=== PATIENT | female | born 1970 | race Two or more races ===

== ENCOUNTER 2021-07-19 10:00 | Outpatient (RCR) | payer MEDICAID, OTHER, SELFPAY | END 2021-07-21 11:16 | disposition home or self-care (01) | LOC: HO.OT 10:00 | PROVIDERS: PCP Internal Medicine; Visit Provider Nurse Practitioner Family | DX: S52.501D Unspecified fracture of the lower end of right radius, subsequent encounter for closed fracture with routine healing (principal) | CPT/HCPCS: 97035; 97110; 97140; 97166; 97530; 97760 ==

== ENCOUNTER 2022-05-06 10:56 | Outpatient (REF) | payer MEDICAID, OTHER, SELFPAY ==
--- NOTE | ~2022-05-06 | MM_ITS ---
EXAMINATION: MM SCREENING DIGITAL BREAST TOMOSYNTHESIS, BILATERAL CLINICAL INFORMATION: Screening. Asymptomatic. The lifetime risk of breast cancer based on the Tyrer-Cuzick Model is 7%. COMPARISON: Mammography: 04/18/2019, 04/05/2018 TECHNIQUE: Digital breast tomosynthesis is performed in both the craniocaudal and mediolateral oblique views along with computer-aided detection (CAD). Synthesized 2D images are generated from the tomosynthesis. FINDINGS: The breasts are heterogeneously dense, which may obscure small masses (ACR BI-RADS breast composition Category c). There are no significant masses, abnormal calcifications, or other abnormalities. Parenchymal pattern is similar to prior studies. There is no developing density or architectural abnormality. The axilla and skin contours are unremarkable. No significant changes. MM/MM tomosynthesis screening BI IMPRESSION: No mammographic evidence of malignancy. ASSESSMENT: BI-RADS 1: Negative RECOMMENDATION: Routine annual mammography screening. This patient's information was entered into a reminder system with a target due date for their next mammogram.
== END 2022-05-06 10:57 | disposition home or self-care (01) ==
LOC: HO.MAMMO 10:56
PROVIDERS: PCP General Practice; Visit Provider General Practice
DX: Z12.31 Encounter for screening mammogram for malignant neoplasm of breast (principal)
CPT/HCPCS: 77063; 77067

== ENCOUNTER 2023-02-27 14:40 | Outpatient (REF) | payer MEDICAID, OTHER, SELFPAY ==
[2023-02-27 17:01] LABS: Thyroid Stimulating Hormone 0.66 uIU/mL (0.32-4.0)
== END 2023-02-27 14:41 | disposition home or self-care (01) ==
LOC: HO.HHCL 14:40
PROVIDERS: Visit Provider General Practice
DX: E03.9 Hypothyroidism, unspecified (principal)
CPT/HCPCS: 36415; 84443

== ENCOUNTER 2023-06-13 08:58 | Outpatient (REF) | payer OTHER, SELFPAY | END 2023-06-13 08:59 | disposition home or self-care (01) | LOC: HO.MAMMO 08:58 | PROVIDERS: PCP General Practice; Visit Provider General Practice | DX: Z12.31 Encounter for screening mammogram for malignant neoplasm of breast (principal) | CPT/HCPCS: 77063; 77067 ==

== ENCOUNTER → 2023-06-13 09:15 | Outpatient (BNV) | payer SELFPAY | PROVIDERS: PCP General Practice; Visit Provider Radiology Diagnostic Radiology | DX: Z12.31 Encounter for screening mammogram for malignant neoplasm of breast (principal) | CPT/HCPCS: 77063; 77067 ==

== ENCOUNTER 2023-09-21 22:27 | Emergency (ER) | payer SELFPAY ==
[2023-09-21 22:41] VITALS: BP 141/86; PULSE 65; RESP 18; TEMP 36.4; O2SAT 100; BMI 21.5
[2023-09-21 22:52] LABS: MANUAL DIFF FLAG NO
[2023-09-21 22:53] LABS: Basophils Percent Auto 0.3 % (0-2); Eosinophils Absolute Auto 0.1 X10*3/uL (0.0-0.4); Eosinophils Percent Auto 1.2 % (0-4); Hematocrit 29.9 % (37.0-47.0); Imm Gran Abs Auto 0.01 X10*3/uL (0.00-0.03); Imm Gran Pct Auto 0.1 % (0.0-0.4); Lymphocytes Absolute Auto 2.2 X10*3/uL (1.2-4.9); Lymphocytes Percent Auto 29.6 % (20-40); Mean Corpuscular HGB Conc 33.4 g/dl (31.0-35.0); Mean Corpuscular Hemoglobin 27.5 pg (27.0-33.0); Mean Corpuscular Volume 82.4 fL (80.0-98.0); Monocytes Absolute Auto 0.6 X10*3/uL (0.1-1.2); Monocytes Percent Auto 7.8 % (2-11); Neutrophils Absolute Auto 4.5 x10*3/uL (2.0-8.3); Platelet Count 386 X10*3/uL (160-400); Red Blood Count 3.63 X10*6/uL (4.20-5.50); White Blood Count 7.4 X10*3/uL (4.8-10.8)
[2023-09-21 23:08] LABS: Alanine Aminotransferase 13 U/L (0-31); Albumin Level 4.2 g/dL (3.5-5.0); Alkaline Phosphatase 105 U/L (39-117); Anion Gap 13 (12-20); Aspartate Amino Transferase 21 U/L (5-31); Bilirubin Total 0.1 mg/dL (0.0-1.0); Blood Urea Nitrogen 15 mg/dL (9-16); Calcium 9.4 mg/dL (8.4-10.2); Carbon Dioxide 28 mmol/L (22-29); Chloride 105 mmol/L (96-108); Creatinine Clr Calc Pharmacy 77.6; Estimated Glomerular Filt Rate > 60; Glucose Random 112 mg/dL (60-115); Sodium 142 mmol/L (135-145); Total Protein 7.8 g/dL (6.5-8.0)
--- NOTE | 2023-09-22 01:30 | ED.GENADULT ---
HPI - General Adult General Chief complaint: Dental/Oral Stated complaint: right cheek swelling ? tooth Time Seen by Provider: 09/22/23 01:09 Source: patient, RN notes reviewed and old records reviewed Mode of arrival: ambulatory Limitations: no limitations History of Present Illness HPI narrative: 52-year-old female presents for evaluation of right-sided facial pain and swelling. 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 She does state that similar illnesses she was chronic due to the previous cancer, surgery and radiation Denies any recent trauma to the head or neck There is no swelling to the neck Related Data Previous Rx's Medication Instructions Recorded amoxicillin 875 mg-potassium 1 tab PO BID #19 tabs 09/22/23 clavulanate 125 mg tablet Allergies Allergy/AdvReac Type Severity Reaction Status Date / Time No Known Allergies Allergy Verified 09/21/23 22:40 [No Known Allergies*] Review of Systems Constitutional: Constitutional: Denies body ache(s), Denies chills and Denies fever(s) ENT: Reports dental pain, Reports facial pain, Reports mouth pain, Denies neck mass and Denies neck pain Musculoskeletal: Musculoskeletal: Denies neck pain Physical Exam ED Vital Signs: Vital Signs - 24 hr 09/21/23 22:41 Temperature 97.6 F Pulse Rate 65 Respiratory Rate 18 Blood Pressure 141/86 H Pulse Oximetry 100 Oxygen Delivery Method Room Air BMI result Body Mass Index 21.5 Const General: healthy appearing, comfortable, no acute distress, alert and awake Nutritional Appearance: well nourished Orientation/consciousness: patient oriented x3 HENMT Other: Patient has right lower facial edema with some erythema to the right lower mandible. No step-offs or deformities. With the help of the tongue depressor I was able to evaluate the gingiva with minimal erythema in significant edema. No obvious abscess. No area of fluctuance. Patient has significant dental caries throughout the mouth. No Adilson's angina Eyes Eyelids: Yes eyelids normal Conjunctivae: conjunctivae normal Sclerae: sclerae normal Corneas: corneas normal Pupils: Equal, round and reactive pupils present EOM: EOMs intact bilaterally Neck Neck: Yes full ROM, Yes trachea midline, Yes supple and Yes anterior neck swelling Resp Effort & Inspection: normal respiratory effort, able to speak in complete sentences and not labored Skin General skin exam: elasticity normal Neuro General: patient oriented x3 Cranial nerves: Yes Equal, round and reactive pupils present and Yes Bilaterally intact EOM present Cognition (Neuro): normal cognition Extrem Other: Moving all extremities well without any obvious deformities Medical Decision Making Medical Decision Making [facility] Narrative: Patient has multiple dental caries and evident dental infection with no evidence of abscess, Adilson's angina or neck swelling. Will treat the patient with Augmentin and she was encouraged to follow up with a dentist. Differential Diagnosis Differential Diagnoses: The differential diagnosis associated with the presentation includes Abscess Cellulitis Dental abscess Dental caries Facial pain Lab Data [facility] Lab Attestation statement: I reviewed the patient's lab results. No leukocytosis. Patient has a mild anemia with a hemoglobin of 10.0 hematocrit 29.9. No significant chemistry abnormalities 09/21/23 22:48 09/21/23 22:48 Labs: Lab Results 09/21/23 Range/Units 22:48 WBC 7.4 (4.8-10.8) X10*3/uL RBC 3.63 L (4.20-5.50) X10*6/uL Hgb 10.0 L (12.0-16.0) g/dl Hct 29.9 L (37.0-47.0) % MCV 82.4 (80.0-98.0) fL MCH 27.5 (27.0-33.0) pg MCHC 33.4 (31.0-35.0) g/dl RDW 16.0 (11.0-16.0) % Plt Count 386 (160-400) X10*3/uL MPV 9.0 L (9.4-12.3) fL Immature Gran % (Auto) 0.1 (0.0-0.4) % Neut % (Auto) 61.0 (45-73) % Lymph % (Auto) 29.6 (20-40) % [place] % (Auto) 7.8 (2-11) % Eos % (Auto) 1.2 (0-4) % Baso % (Auto) 0.3 (0-2) % Lymph # (Auto) 2.2 (1.2-4.9) X10*3/uL [place] # (Auto) 0.6 (0.1-1.2) X10*3/uL Eos # (Auto) 0.1 (0.0-0.4) X10*3/uL Baso # (Auto) 0.0 (0.0-0.2) X10*3/uL Abs Immat Gran (auto) 0.01 (0.00-0.03) X10*3/uL Absolute Neuts (auto) 4.5 (2.0-8.3) x10*3/uL Absolute Nucleated RBC 0.000 (0.0-0.012) X10*3/uL Nucleated RBC % (auto) 0.0 (0.0-0.2) /100WBC Sodium 142 (135-145) mmol/L Potassium 4.0 (3.3-5.1) mmol/L Chloride 105 (96-108) mmol/L Carbon Dioxide 28 (22-29) mmol/L Anion Gap 13 (12-20) BUN 15 (9-16) mg/dL Creatinine 0.74 (0.5-1.4) mg/dL Estim Creat Clear Calc 77.6 Estimated GFR > 60 Random Glucose 112 (60-115) mg/dL Calcium 9.4 (8.4-10.2) mg/dL Total Bilirubin 0.1 (0.0-1.0) mg/dL AST 21 (5-31) U/L ALT 13 (0-31) U/L Alkaline Phosphatase 105 (39-117) U/L Total Protein 7.8 (6.5-8.0) g/dL Albumin 4.2 (3.5-5.0) g/dL Discharge Plan Discharge Clinical Impression: Dental caries, Facial swelling Patient Disposition: Home, Self-Care Instructions: Gingivostomatitis (ED) Additional Instructions: Take Augmentin twice daily for the next 10 days Use Motrin/Tylenol for pain and swelling Apply warm compresses to the area every 4 hours It is very important that you follow-up with a dentist You will likely continue to have infections if you do not get proper oral hygiene Return for new or worsening symptoms Prescriptions: New amoxicillin-pot clavulanate 875-125 mg tablet 1 tab PO BID Qty: 19 0RF
[2023-09-22] MEDS: Amoxicillin/Potassium Clav 875 MG TABLET PO (01:41)
== END 2023-09-22 01:51 | disposition home or self-care (01) ==
PROVIDERS: Emergency Provider Internal Medicine; PCP General Practice
DX: K05.10 Chronic gingivitis, plaque induced (principal); R51.9 Headache, unspecified
CPT/HCPCS: 36415; 80053; 85025; 99283; 99284

== ENCOUNTER 2023-10-02 11:16 | Outpatient (REF) | payer SELFPAY ==
[2023-10-02 14:11] LABS: TSH reflex Free T4 6.44 uIU/mL (0.32-4.0)
[2023-10-02 14:52] LABS: Free T4 (Free Thyroxine) 1.14 ng/dL (0.71-1.85)
== END 2023-10-02 11:17 | disposition home or self-care (01) ==
LOC: HO.HHCL 11:16
PROVIDERS: Visit Provider General Practice
DX: E03.9 Hypothyroidism, unspecified (principal)
CPT/HCPCS: 36415; 84439; 84443

== ENCOUNTER 2024-01-29 10:13 | Outpatient (REF) | payer OTHER, SELFPAY ==
[2024-01-29 12:36] LABS: TSH reflex Free T4 20.82 uIU/mL (0.32-4.0)
[2024-01-29 12:43] LABS: HIV AB/AG Nonreactive (Nonreactive); HIV Num 1 0.06 S/CO (0.00-0.99); ~HepC Num1 0.16 S/CO (0.00-0.79); ~Hepatitis C Antibody Nonreactive (Nonreactive)
[2024-01-29 13:45] LABS: Free T4 (Free Thyroxine) 0.89 ng/dL (0.71-1.85)
[2024-01-31 06:39] LABS: RPR Rapid Plasma Reagin NON-REACTIVE (NON-REACTIVE)
== END 2024-01-29 10:14 | disposition home or self-care (01) ==
LOC: HO.HHCL 10:13
PROVIDERS: Visit Provider General Practice
DX: E03.9 Hypothyroidism, unspecified (principal); Z11.3 Encounter for screening for infections with a predominantly sexual mode of transmission
CPT/HCPCS: 36415; 84439; 84443; 86592; 86803; 87389

== ENCOUNTER 2024-12-31 11:16 | Outpatient (REF) | payer SELFPAY ==
--- OUTSIDE RECORDS SUMMARY | 2024-12-31 12:58 | XMS_ITS | Encounter Summary ---
Author Organization [facility] Address [address] [place] [address] Care Team Providers Care Purchasing Officer Name Role Phone Wilda Smyth Primary Care Provider [phone] Encounter Details Date Type Department Care Team (Late Contact Info) Description 04/20/2021 Orders Only [facility] Interventional Radiology [address] [place] [phone] Darrian Yung MD [address] [place] [phone] Social History Tobacco Use Types Packs/Day Years Used Date Smoking Tobacco: Never Smokeless Tobacco: Never Alcohol Use Standard Drinks/Week Comments No 0 (1 standard drink = 0.6 oz pur e alcohol) Comments No Sex and Gender Information Value Date Recorded Sex Assigned at Not on file Legal Sex Female 10:52 AM EDT Gender Identity Not on file Sexual Orientation Not on file Occupation Industry Job Start Date Job End Date unemployed Not on file Not on file Not on file documented as of this encounter Plan of Treatment Upcoming Encounters Date Type Department Care Team (Late Contact Info) Description 03/28/2025 10:00 AM EDT Appointment [facility] Otol[facility]ology [facility] [address] [place] [address] Solutions Analyst: Lokesh Rogers Jr., MD [address] [place] [address] [phone] documented as of this encounter Visit Diagnoses Not on filedocumented in this encounter Care Teams Purchasing Officer Relationship Specialty Start Date End Date Wilda Smyth [address] [place] [address] PCP - General 03/05/21 documented as of this encounter
[2024-12-31 14:20] LABS: TSH reflex Free T4 11.84 uIU/mL (0.32-4.0)
[2024-12-31 18:20] LABS: Free T4 (Free Thyroxine) 0.96 ng/dL (0.71-1.85)
== END 2024-12-31 11:17 | disposition home or self-care (01) ==
LOC: HO.HHCL 11:16
PROVIDERS: Visit Provider General Practice
DX: E03.9 Hypothyroidism, unspecified (principal)
CPT/HCPCS: 36415; 84439; 84443

== ENCOUNTER 2025-05-12 12:00 | Outpatient (REF) | payer OTHER, SELFPAY ==
--- OUTSIDE RECORDS SUMMARY | 2025-05-07 15:45 | XMS_ITS | Encounter Summary ---
Author Organization [facility] [employer] [facility] [employer] Address [address] [place] [address] [address] [place] [address] Care Team Providers Care Financial Brokers Name Role Phone Wilda Smyth MD Primary Care Provider [phone] Reason for Referral * Consultation (Routine) - Authorized Specialty Diagnoses / Procedures Referred By Aaliyah rivera Referred To Contact Plastic Surgery Diagnoses Maxillary sinus cancer (CMS/HCC) (HCC) Wilda Smyth MD [address] [place] [address] Phone: tel: fax: Plastics, [facility] [address] [place], [place] Phone: tel: fax: Referral ID Status Reason Start Date Expiration Date Visits Requested Visits Authorized [id number] Authorized Specialty Services Required 05/07/2025 05/07/2026 1 1 Reason for Visit * Reason Comments Follow-up Encounter Details Date Type Department Care Team (Latest Contact Info) Description 05/07/2025 3:45 PM EDT Office Visit [facility] [address] [place], [place] [phone] Wilda Smyth MD [address] [place], [place] [phone] Postoperative hypothyroidism (Primary Dx); Maxillary sinus cancer (CMS/HCC) (HCC) Social History Tobacco Use Types Packs/Day Years Used Date Smoking Tobacco: Never Passive Smoke Exposure: Never Smokeless Tobacco: Never Alcohol Use Standard Drinks/Week Comments Never 0 (1 standard drink = 0.6 oz pur e alcohol) Alcohol Answer Date Recorded How often do you have a drink containing alcohol ? 0 05/07/2025 How many drinks containing a lcohol do you have on a typical day when you are drinking? 0 05/07/2025 How often do you have six or more drinks on one occasion? 0 05/07/2025 Depression Answer Date Recorded Patient Health Questionnaire-9 Score 3 05/07/2025 Patient Health Questionnaire-9 Score 3 05/07/2025 Last PHQ-9: Questionnaire Data Not on file 1 Housing Stability Answer Date Recorded What is your housing situation today? I have juancho rivera 01/18/[address] you li ve. Do you have problems with any of the following? None of the above 01/18/2024 Food Insecurity Answer Date Recorded Within the past 12 months, y ou worried that your food would run out before you got money to buy more: Never True 01/18/2024 Within the past 12 months,th e food you bought just didn't last and you didn't have enough money to get more: Never True Transportation Answer Date Recorded In the past 12 months, has l ack of transportation kept you from medical appts, meetings, work or from getting things needed for daily living? No 01/18/2024 Utilities Answer Date Recorded In the past 12 months, has t he electric, gas, oil or water company threatened to shut off services in your home? No 01/18/2024 Depression Answer Date Recorded Patient Health Questionnaire-2 Score 0 05/07/2025 Internet Access Answer Date Recorded Internet Access Q1 No 12/19/2024 Internet Access Q2 I do not want or need it 11/29 Comments Unknown Sex and Gender Information Value Date Recorded Sex Assigned at Female 05/30/2022 10:34 AM EDT Legal Sex Female 10:34 AM EDT Gender Identity Female 05/30/2022 10:34 AM EDT Sexual Orientation Straight 05/30/2022 10 :34 AM EDT documented as of this encounter Last Filed Vital Signs Vital Sign Reading Time Taken Comments Blood Pressure 138/84 05/07/2025 4:21 PM EDT Pulse - - Temperature - - Respiratory Rate - - Oxygen Saturation - - Inhaled Oxygen Concentration - - Weight 56.6 kg (124 lb 12.8 oz) 05/07/2025 3:45 PM EDT Height 160 cm (5' 3 ) 05/07/2025 3:45 PM EDT Body Mass Index 22.11 05/07/2025 3:45 PM EDT documented in this encounter Functional Status * Over the past 2 weeks, how often have you been bothered by any of the following problems? Question Answer Date of Assessment Author Patient Health Questionnaire -2 Score 0 05/07/2025 4:21 PM EDT Mile Campos [place] * Little interest or pleasure in doing things Answer Date of Assessment Author Not at all 05/07/2025 4:21 PM EDT Mile Campos [place] * Feeling down, depressed, or hopeless Answer Date of Assessment Author Not at all 05/07/2025 4:21 PM VIVIANET Mile Campos [place] * Trouble falling or staying asleep, or sleeping too much Answer Date of Assessment Author Several days 05/07/2025 4:21 PM EDT Mile Campos [place] * Feeling tired or having little energy Answer Date of Assessment Author Several days 05/07/2025 4:21 PM EDT Mile Campos [place] * Poor appetite or overeating Answer Date of Assessment Author Several days 05/07/2025 4:21 PM EDT Mile Campos [place] * Feeling bad about yourself - or that you are a failure or have let yourself or your family down Answer Date of Assessment Author Not at all 05/07/2025 4:21 PM EDT Mile Campos [place] * Trouble concentrating on things, such as reading the newspaper or watching television Answer Date of Assessment Author Not at all 05/07/2025 4:21 PM EDT Mile Campos [place] * Moving or speaking so slowly that other people could have noticed? Or the opposite - being so fidgety or restless that you have been moving around a lot more than usual. Answer Date of Assessment Author Not at all 05/07/2025 4:21 PM VIVIANET Mile Campos [place] * Thoughts that you would be better off or hurting yourself in some way Answer Date of Assessment Author Not at all 05/07/2025 4:21 PM EDT Mile Campos [place] * Patient Health Questionnaire-9 Score Answer Date of Assessment Author 3 05/07/2025 4:21 PM EDT Mile Campos [place] * How difficult have these problems made it for you to do your work, take care of things at home, or get along with other people? Answer Date of Assessment Author Somewhat difficult 05/07/2025 4:21 PM EDT Mile García [place] * Over the last 2 weeks, how often have you been bothered by any of the following problems? Question Answer Date of Assessment Author Feeling nervous, anxious, or on edge 0 05/07/2025 4:21 PM EDT Mile Campos MA Not being able to stop or co ntrol worrying 0 05/07/2025 4:21 PM EDT Mile Campos MA Worrying too much about diff erent things 0 05/07/2025 4:21 PM EDT Mile Campos [place] Trouble relaxing 0 05/07/2025 4:21 PM EDT Mile Valles [place] Being so restless that it is hard to sit still 0 05/07/2025 4:21 PM EDT Mile Campos MA Becoming easily annoyed or irritable 1 05/07/2025 4:21 PM EDT Mile Campos MA Feeling afraid as if somethi ng awful might happen 0 05/07/2025 4:21 PM EDT Mile Campos MA TOBIN-7 Total Score 1 05/07/2025 4:21 PM EDT Mile Campos MA documented as of this encounter Progress Notes * Wilda Smyth MD - 05/07/2025 3:45 PM EDT Images from the original note were not included. SUBJECTIVE: Kimberly Castorena is a 54 y.o. female who presents for chronic disease management. Denies recent illness, ER visit, or hospitalization. Acute Concerns: Referral to [facility] for plastic surgery Chronic Conditions and Plans: Aiden and post-surgical hypothyroidism: Taking 150mcg Levothyroxine Lab Results Component Value Date TSH 11.84 (H) 12/31/2024 TSH 20.82 (H) 01/29/2024 TSH 6.44 (H) 10/02/2023 TSH 0.66 02/27/2023 TSH 41.66 (H) 10/17/2022 Was on Synthroid 50mcg daily from 04/2018 to 01/2019, then stopped due to confusion about whether this was a chronic issue. When I saw her in 07/2020, she was complaining of dry skin, tingling in hands, weight loss (weight hard to separate out because of her oral/maxillary surgery). Labs rechecked 07/2020 with TSH 120 and T4 0.2. I started her on Synthroid 100mcg (2mcg/kg) and TSH was 5.4 (11/2020). She saw Kezia Fortune NP at [facility] on 03/03/21 and her TSH was 37, with free T4 in normal range, TPO continues to be very elevated. She reports [facility] told her that I can manage her and she does not need to see them. She prefers this too as transportation to [facility] is difficult. Poor dentition/need for dentures Saw ZONING ENGINEER few times in [facility], switching to [facility] first appointment 03/13/24 to help with opening and mobilizing her mouth. Is now doing the denture/prosthesis and exercises herself [facility] oral maxillofacial surgeon is determining when they can operate on her teeth/set of dentures. Having repeated bouts of R lower jaw inflammation. 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 for fibroma, not sure if it was cervix- sparing or not Does not recall previous pap history, no abnormals that she remembers Not sexually active currently Maxillary Tumor/Facial reconstruction: Had repeat maxillary reconstruction from radial bone and skin graft, anterior neck approach- 04/26/2021 at [facility] Following for dental reconstruction with Lokesh Monroy, [address] [phone] speaking a little better, gained 20 pounds (was 100 pounds day of surgery) eating is the same, swallowing is difficult marcin small or dry foods. She has had two failed bone grafts of the maxilla (one from her arm and one from her thigh). She has a residual hole in L upper cheek that makes it difficult to eat or talk. Went through PT/OT at [facility] and in [place]. 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 HENT: Positive for dental problem and voice change. Negative for congestion, drooling, ear discharge, ear pain, facial swelling, hearing loss, mouth sores, nosebleeds, postnasal drip, rhinorrhea, sinus pressure, sinus pain, sneezing, sore throat, tinnitus and trouble swallowing. Respiratory: Negative. Cardiovascular: Negative. Gastrointestinal: Negative. OBJECTIVE: Vitals: 05/07/25 1545 05/07/25 1621 BP: (!) 140/90 138/84 BP Location: Left arm Patient Position: Sitting BP Cuff Size: Large adult Weight: 124 lb 12.8 oz (56.6 kg) Height: 5' 3 (1.6 m) Physical Exam Vitals and nursing note reviewed. Constitutional: Appearance: Normal appearance. HENT: Head: Normocephalic. Jaw: Malocclusion present. No swelling or pain on movement. Comments: Missing portion of her L maxilla with associated shrunken deformity of her L cheek Right Ear: Tympanic membrane, ear canal and external ear normal. Left Ear: Tympanic membrane, ear canal and external ear normal. Nose: Nose normal. Mouth/Throat: Mouth: Mucous membranes are moist. Injury present. Dentition: Abnormal dentition. Dental tenderness and dental caries present. Cardiovascular: Rate and Rhythm: Normal rate and regular rhythm. Pulses: Normal pulses. Heart sounds: Normal heart sounds. Pulmonary: Effort: Pulmonary effort is normal. Breath sounds: Normal breath sounds. Skin: General: Skin is warm and dry. Neurological: General: No focal deficit present. Mental Status: She is alert and oriented to person, place, and time. Psychiatric: Mood and Affect: Mood normal. Behavior: Behavior normal. ASSESSMENT/PLAN Problem List Items Addressed This Visit Hypothyroidism - Primary Relevant Orders TSH W/Reflex to FT4 Maxillary sinus cancer (CMS/HCC) ([facility]) Current Assessment & Plan S/p wide excision 2019 Began the process of facial reconstruction and dental reconstruction after that surgery in 2019. Team involved: - Dr Monroy ENT surgeon at [facility] Speech therapy - oral maxillofacial surgeon recommend plastic surgery consult 02/2025 Relevant Orders Referral to Plastic Surgery Follow Up: 4 months or sooner prn Allergies[2] Current Medications[3] Iraqi Translation: Provided by [facility] staff member BEV Treadwell [1] Past Surgical History: Procedure Laterality Date HYSTERECTOMY SINUS SURGERY Left 03/2021 Left maxilla reconstruction from hand bone [2] Allergies Allergen Reactions Lemon Oil Angioedema Tongue thickens Pineapple Angioedema [3] Current Outpatient Medications: melatonin 3 MG tablet, Take 3 mg by mouth at bedtime., Disp: , Rfl: Docusate Sodium (DSS) 100 MG capsule, Take 100 mg by mouth., Disp: , Rfl: ibuprofen 600 MG tablet, TAKE 1 TABLET BY MOUTH THREE TIMES DAILY WITH FOOD, Disp: , Rfl: levothyroxine (Synthroid) 150 MCG tablet, Take 1 tablet (150 mcg) by mouth before breakfast., Disp:90 tablet, Rfl: 3 Melatonin 3 MG capsule, Take 3 mg by mouth at bedtime., Disp: 90 capsule, Rfl: 0 Multiple Vitamin (Multi-Vitamin) tablet, take 1 tablet by oral route every day with food, Disp: 90 tablet, Rfl: 3 pentoxifylline (Trental) 400 MG ER tablet, Take 400 mg by mouth with breakfast and with evening meal., Disp: , Rfl: polyvinyl alcohol (Liquifilm Tears) 1.4 % ophthalmic solution, Administer 1 drop into affected eye(s)., Disp: , Rfl: sennosides (Senokot) 8.6 MG tablet, Take 8.6 mg by mouth., Disp: , Rfl: Vitamin D High Potency 25 MCG (1000 UT) capsule, Take 25 mcg by mouth in the morning., Disp: , Rfl: documented in this encounter Miscellaneous Notes * Assessment & Plan Note - Wilda Smyth MD - 05/07/2025 7:28 PM EDTAssociated Problem(s): Maxillary sinus cancer (CMS/HCC) (HCC) S/p wide excision 2019 Began the process of facial reconstruction and dental reconstruction after that surgery in 2019. Team involved: - Dr Monroy ENT surgeon at [facility] Speech therapy - oral maxillofacial surgeon recommend plastic surgery consult 02/2025 documented in this encounter Plan of Treatment Scheduled Orders Name Type Priority Associated Diagnoses Orde r Schedule TSH W/Reflex to FT4 Lab Routine Postoperative hypothyroidism Expected: 05/07/2025 (Approximate), Expires: 05/07/2026 Scheduled Referrals Name Type Priority Associated Diagnoses Orde r Schedule Referral to Plastic Surgery Outpatient Referral Routine Maxillary sinus cancer (CMS/HCC) (HCC) Expected: 05/07/2025 (Approximate), Expires: 05/07/2026 documented as of this encounter Visit Diagnoses Diagnosis Postoperative hypothyroidism- Primary Postsurgical hypothyroidism Maxillary sinus cancer (CMS/HCC) (HCC) documented in this encounter Additional Health Concerns Assessment Noted Time PHQ-9 Depression Total Score: 3 05/07/20 25 4:21 PM EDT documented as of this encounter Care Teams Financial Brokers Relationship Specialty Start Date End Date Wilda Smyth MD [address] [place] [address] PCP - General Family Medicine 06/15/20 documented as of this encounter
--- OUTSIDE RECORDS SUMMARY | 2025-05-12 12:04 | XMS_ITS | Encounter Summary ---
Author Organization [employer] Address [address] [place] [address] Care Team Providers Care Trimmer Operator Name Role Phone Wilda Smyth MD Primary Care Provider Encounter Details Date Type Department Care Team ([facility] st Contact Info) Description 04/12/2024 Orders Only [facility] MEDICINE [address] [place], [place] [phone] Wilda Smyth MD [address] [place], [place] [phone] Weight loss, unintentional (Primary Dx) Social History Tobacco Use Types Packs/Day Years Used Date Smoking Tobacco: Never Passive Smoke Exposure: Never Smokeless Tobacco: Never Alcohol Use Standard Drinks/Week Comments Never 0 (1 standard drink = 0.6 oz pur e alcohol) Depression Answer Date Recorded Patient Health Questionnaire-9 Score 0 01/29/2024 Patient Health Questionnaire-9 Score 0 01/29/2024 Last PHQ-9: Questionnaire Data Not on file 0 01/29/2024 Housing Stability Answer Date Recorded What is [...] Date Recorded Patient Health Questionnaire-2 Score 0 01/29/2024 Internet Access Answer Date Recorded Internet Access Q1 No 04/01/2024 Internet Access Q2 Not on file 04/01/2024 Comments Unknown Sex and Gender Information Value Date Recorded Sex Assigned at Female 05/30/2022 10:34 AM EDT Legal Sex Female 10:34 AM EDT Gender Identity Female 05/30/2022 10:34 AM EDT Sexual Orientation Straight 05/30/2022 10 :34 AM EDT documented as of this encounter Plan of Treatment Not on file documented as of this encounter Visit Diagnoses Diagnosis Weight loss, unintentional- Primary Loss of weight documented in this encounter Additional Health Concerns Assessment Noted Time PHQ-9 Depression Total Score: 0 01/29/20 24 9:19 AM EDT documented as of this encounter Care Teams Trimmer Operator Relationship Specialty Start Date End Date Wilda Smyth MD [address] [place] [address] PCP - General Family Medicine 06/15/20 documented as of this encounter
--- OUTSIDE RECORDS SUMMARY | 2025-05-12 12:04 | XMS_ITS | Encounter Summary ---
Author Organization [employer] Address [address] [place] [address] [address] [place] [address] Care Team Providers Care Teamsite Developer Name Role Phone Wilda Smyth MD Primary Care Provider [phone] Reason for Referral * Consultation (Routine) - Closed Specialty Diagnoses / Procedures Referred By Aaliyah t Referred To Contact Speech Pathology Diagnoses Maxillary sinus cancer (CMS/HCC) (HCC) Speech dysfunction Wilda Smyth MD [address] [place] [address] Phone: tel: fax: [address] Phone: tel: fax: Referral ID Status Reason Start Date Expiration Date V isits Requested Visits Authorized [id number] Closed Specialty Services Required 03/25/2024 03/25/2025 1 1 Encounter Details Date Type Department Care Team (Late st Contact Info) Description 03/25/2024 Orders Only [facility] MEDICINE [address] [place], [place] [phone] Wilda Smyth MD [address] [place], [place] [phone] Maxillary sinus cancer (CMS/HCC) (Primary Dx); Speech dysfunction Social History Tobacco Use Types Packs/Day Years [...] your housing situation today? I have juancho irvera 01/18/[address] you li [...] Recorded Patient Health Questionnaire-2 Score 0 01/29/2024 Comments Unknown Sex and Gender Information Value Date Recorded Sex Assigned at Female 05/30/2022 10:34 AM EDT Legal Sex Female 10:34 AM EDT Gender Identity Female 05/30/2022 10:34 AM EDT Sexual Orientation Straight 05/30/2022 10 :34 AM EDT documented as of this encounter Plan of Treatment Not on file documented as of this encounter Procedures Procedure Name Priority Date/Time Associated Diagnosis Comments AMB REFERRAL TO SPEECH THERAPY Routine 04/11/2024 Maxillary sinus cancer (CMS/HCC) Speech dysfunction documented in this encounter Results * Referral to Speech Therapy (04/11/2024) Wilda Smyth MD OUTPATIENT REFERRAL ORDERABLES Final Result documented in this encounter Visit Diagnoses Diagnosis Maxillary sinus cancer (CMS/HCC) (HCC)- Primary Speech dysfunction documented in this encounter Additional Health Concerns Assessment Noted Time PHQ-9 Depression Total Score: 0 01/29/20 24 9:19 AM EDT documented as of this encounter Care Teams Teamsite Developer Relationship Specialty Start Date End Date Wilda Smyth MD [address] [place] [address] PCP - General Family Medicine 06/15/20 documented as of this encounter
--- OUTSIDE RECORDS SUMMARY | 2025-05-12 12:04 | XMS_ITS | Encounter Summary ---
Author Organization [facility] Address [address] [place] [address] Care Team Providers Care Bulk Filler Name Role Phone Wilda Smyth Primary Care Provider [phone] Encounter Details Date Type Department Care Team (Late st Contact Info) Description 11/26/2020 Orders Only [facility] Interventional Radiology [address] [place], [place] [phone] Brien Kwong MD [address] [place], [place] [phone] Social History Tobacco Use Types Packs/Day Years Used Date Smoking Tobacco: Never Smokeless Tobacco: Never Alcohol Use Standard Drinks/Week Comments No 0 (1 standard drink = 0.6 oz pur e alcohol) Comments No Sex and Gender Information Value Date Recorded Sex Assigned at Female 03/28/2025 8:35 AM EDT Legal Sex Female 10:52 AM EDT Gender Identity Female 05/05/2025 12:03 PM EDT Sexual Orientation Not on file Occupation Industry Job Start Date Job End Date unemployed Not on file Not on file Not on file documented as of this encounter Plan of Treatment Not on file documented as of this encounter Visit Diagnoses Not on filedocumented in this encounter Care Teams Bulk Filler Relationship Specialty Start Date End Date Wilda Smyth [address] [place] [address] PCP - General 03/05/21 documented as of this encounter
--- OUTSIDE RECORDS SUMMARY | 2025-05-12 12:04 | XMS_ITS | Encounter Summary ---
Author Organization [employer] Address [address] [place] [address] Care Team Providers Care Energy Economist Name Role Phone Wilda Smyth MD Primary Care Provider [phone] Encounter Details Date Type Department Care Team (Latest Contact Info) Description 05/07/2025 Travel Social History Tobacco Use Types Packs/Day Years [...] AM EDT documented as of this encounter Functional Status * Over the [...] PM EDT [place] * Trouble falling or [...] 4:21 PM EDT [place] * Thoughts that you would be better off or hurting yourself in some way Answer Date of Assessment Author Not at all 05/07/2025 4:21 PM EDT [place] * Patient Health Questionnaire-9 Score Answer Date of Assessment Author 3 05/07/2025 4:21 PM [place]IV[place] * How difficult have [...] annoyed or irritable 1 05/07/2025 4:21 PM [place] Feeling afraid as if somethi ng awful might happen 0 05/07/2025 4:21 PM [place] TOBIN-7 Total Score 1 05/07/2025 4:21 PM [place]ET [place] documented as of this encounter Plan of Treatment Not on file documented as of this encounter Visit Diagnoses Not on filedocumented in this encounter Additional Health Concerns Assessment Noted Time PHQ-9 Depression Total Score: 3 05/07/20 25 4:21 PM EDT documented as of this encounter Care Teams Energy Economist Relationship Specialty Start Date End Date Wilda Smyth MD [address] [place] [address] PCP - General Family Medicine 06/15/20 documented as of this encounter
--- OUTSIDE RECORDS SUMMARY | 2025-05-12 12:04 | XMS_ITS | Clinical Summary ---
Author Organization [employer] Address [address] [facility] [address] [place] [address] Care Team Providers Care Assistant Professor Of Surgery Name Role Phone Wilda Smyth MD Primary Care Provider [phone] Allergies Active Allergy Reactions Criticality Noted Date Comments Lemon Oil Angioedema High 03/03/2021 Tongue thickens Pineapple Angioedema High 03/03/2021 Medications Vitamin D High Potency 25 MCG (1000 UT) capsule Take 25 mcg by mouth in the morning. 3 Active Docusate Sodium (DSS) 100 MG capsule Take 100 mg by mouth. 1 Active ibuprofen 600 MG tablet TAKE 1 TABLET BY MOUTH THREE TIMES DAILY WITH FOOD 2 Active pentoxifylline (Trental) 400 MG ER tablet Take 400 mg by mouth with breakfast and with evening meal. 3 Active polyvinyl alcohol (Liquifilm Tears) 1.4 % ophthalmic solution Administer 1 drop into affected eye(s). 1 Active sennosides (Senokot) 8.6 MG tablet Take 8.6 mg by mouth. 1 Active Multiple Vitamin (Multi-Vitamin) tabletIndication s:Hypothyroidism , unspecified type take 1 tablet by oral route every day with food 90 tablet 3 5 Active Melatonin 3 MG capsuleIndicatio ns:Primary insomnia Take 3 mg by mouth at bedtime. 90 capsule 5 Active levothyroxine (Synthroid) 150 MCG tabletIndication s:Hypothyroidism , unspecified type Take 1 tablet (150 mcg) by mouth before breakfast. 90 tablet 3 5 01/04/20 26 Active melatonin 3 MG tablet Take 3 mg by mouth at bedtime. Active Active Problems Problem Noted Date Diagnosed Date Screening mammogram for breast cancer 01/03/2025 Primary insomnia 01/03/2025 Assessment & Plan (01/03/2025 8:18 AM EDT): Trial melatonin and both cyproheptadine and Remeron were too sedating Screening for cervical cancer 11/21/2022 Overview (11/21/2022): History of hysterectomy for benign condition in [facility] in 2104 No cervix apparent on speculum exam Swab of vaginal cuff sent, largely for HPV testing SureSwab sent Assessment & Plan (11/21/2022 9:24 AM EDT): History of hysterectomy for benign condition in [facility] in 2104 No cervix apparent on speculum exam Swab of vaginal cuff sent, largely for HPV testing SureSwab sent Speech dysfunction 10/13/2022 Assessment & Plan (01/29/2024 9:56 AM EDT): Start working with [facility] 03/13/24 on sppech therapy/tx to improve jaw function Continue exercise and massage at home of cheek, jaw, neck Assessment & Plan (10/17/2022 9:39 AM EDT): Continue working with [facility] on therapy/tx to improve jaw function Is doing exercise and massage at home of cheek, jaw, neck Closed fracture of distal end of radius 05/12/20 21 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 Dysphagia 08/09/2019 Assessment & Plan (10/02/2023 12:41 PM EST): Normal barium swallow 08/2023 Will undergo MAIL PROCESSOR to try and improve how much she can open her mouth in order to prepare for dental extractions and denture creation Assessment & Plan (03/01/2023 3:41 PM EDT): Seen at [facility] in October 2022 Swallowing study ordered Decide if she is strong enough for consult in [place] for third bone graft attempt in April 2023 Assessment & Plan (10/17/2022 9:39 AM EDT): Plan is to be seen at [facility] again in October 2022 Decide if she is strong enough for consult in [place] for third bone graft attempt Chronic ethmoidal sinusitis 12/25/2018 Maxillary sinus cancer (CMS/HCC) 12/17/2018 Assessment & Plan (05/07/2025 7:28 PM EDT): S/p wide excision 2019 Began the process of facial reconstruction and dental reconstruction after that surgery in 2018. Team involved: - Dr Monroy ENT surgeon at [facility] - [facility] Speech therapy - oral maxillofacial surgeon recommend plastic surgery consult 02/2025 Assessment & Plan (01/29/2024 9:58 AM EDT): S/p wide excision 2019 In the process of facial reconstruction and dental reconstruction after that surgery in 2018. Team involved: - Dr Monroy ENT surgeon - [facility] Speech therapy - oral maxilofacial surgeon in [place] Assessment & Plan (10/17/2022 9:40 AM EDT): S/p wide excision 2019 Dyslipidemia 09/26/2018 Hypothyroidism 05/07/2018 Assessment & Plan (01/03/2025 8:16 AM EDT): TSH high on last two checks (11 and 20 respectively) will normal T4 Will increase Synthroid to 150mcg Assessment & Plan (01/29/2024 9:57 AM EDT): On Synthroid 125mcg, taking it daily first thing in the morning Recheck TSH today, TSH 6.6 (09/2023) Assessment & Plan (03/01/2023 3:41 PM EDT): On Synthroid 125mcg Recheck TSH today, TSH 0.6 ? 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 H/O: hysterectomy 03/28/2018 Maxillary polyp of sinus 03/28/2018 Resolved Problems Problem Noted Date Diagnosed Date Resolved Date Postprocedural hypotension 04/27/2021 0 01/03/2025 Open wound of face 01/29/2019 Encounters Date Type Department Care Team Description 05/07/2025 3:45 PM EDT Office Visit [facility] [address] [place] [address] Wilda Smyth MD Postoperative hypothyroidism (Primary Dx); Maxillary sinus cancer (CMS/HCC) (HCC) 05/07/2025 Travel 05/06/2025 Telephone [facility] [address] [place] [address] Wilda Smyth MD chart prep 05/05/2025 Telephone [facility] [address] [place] [address] Wilda Smyth MD Referral 04/23/2025 Telephone [facility] [address], [place] [phone] Sri Reyez OD from Last 3 Months Immunizations Immunization Administration Dates Next Due Influenza injectable quadrivalent preservative f ree 07/29/2020,07/04/2018 Moderna Covid-19 Vaccine 12+ 11/26/2020,10/29/19 21 Tdap 01/29/2024 Social History Tobacco Use Types Packs/Day Years Used Date Smoking Tobacco: Never Passive Smoke Exposure: Never Smokeless Tobacco: Never Tobacco Cessation:Counseling Given: Not Answered Alcohol Use Standard Drinks/Week Comments Never 0 [...] Orientation Straight 05/30/2022 10 :34 AM EDT Last Filed Vital Signs Vital Sign Reading Time Taken Comments Blood Pressure 138/84 05/07/2025 4:21 PM EDT Pulse 60 12/31/2024 10:28 AM EDT Temperature 36.3 C (97.4 F) 12/31/2024 10:28 AM EDT Respiratory Rate 12 12/31/2024 10:2 8 AM EDT Oxygen Saturation 98% 01/29/2024 9:14 AM EDT Inhaled Oxygen Concentration - - Weight 56.6 kg (124 lb 12.8 oz) 05/07/2025 3:45 PM EDT Height 160 cm (5' 3 ) 05/07/2025 3:45 PM EDT Body Mass Index 22.11 05/07/2025 3:45 PM EDT Plan of Treatment Health Maintenance Due Date Last Done Comments CT Colonography 1971 Colonoscopy 1971 Dental Prophylaxis 1971 Dental X-Ray: Bitewings 1971 FIT 1971 Sigmoidoscopy 1971 Hepatitis B Vaccines (1 of 3 - 19+ 3-dose series) 11/09/1990 Pneumococcal Vaccine: 50+ Years (1 of 1 - PCV) 11/09/2021 Zoster Vaccines (1 of 2) 11/09/2021 FOBT 11/11/2023 2022 Mammogram 06/13/2024 06/13/2023, 10/01/2022, 05/06/2022, Additional history exists Dental Oral Exam 08/22/2024 02/19/2024, 03/17/2021 COVID-19 Vaccine ( season) 2025 11/26/2020, 10/28/2020 Influenza Vaccine (#1) 2025 07/29/2020, 2017 Colorectal Cancer Screening 2025 FIT DNA/Cologuard 2025 2022 Pap Smear 11/21/2025 11/21/2022, 11/21/2022 SDOH Screening 12/19/2025 12/19/2024 Disability Screening 12/31/2025 12/31/2024 Alcohol/Substance Use Screening 05/07/2026 05/07/2025 Depression Screening 05/07/2026 05/07/2025, 05/07/20 25 Tobacco Screening 05/07/2026 05/07/2025 Dental X-Ray: Full Mouth 02/19/2027 02/19/2024, 02/28 Cervical Cancer Screening 11/22/2027 HPV/Cotest 11/22/2027 11/21/2022 DTaP/Tdap/Td Vaccines (2 - Td or Tdap) 01/28/2034 01/29/2024 RSV Patients and Patients Aged 60 years or older (1 - 1-dose 75+ series) 11/09/2046 HIV Screening Completed 01/29/2024 Hepatitis C Screening Completed 01/29/2024 HIB Vaccines Aged Out No longer eligi ble based on patient's age to complete this topic HPV Vaccines Aged Out No longer eligi ble based on patient's age to complete this topic Hepatitis A Vaccines Aged Out No long er eligible based on patient's age to complete this topic IPV Vaccines Aged Out No longer eligi ble based on patient's age to complete this topic Meningococcal B Vaccine Aged Out No l onger eligible based on patient's age to complete this topic Meningococcal Vaccine Aged Out No marely caitlin eligible based on patient's age to complete this topic RSV under 20 months Aged Out No longe r eligible based on patient's age to complete this topic Rotavirus Vaccines Aged Out No longer eligible based on patient's age to complete this topic Procedures Procedure Name Priority Date/Time Associated Diagnosis Comments PANORAMIC RADIOGRAPHIC IMAGE Routine 02/19/2024 11:00 AM EDT PERIODIC ORAL EVALUATION - ESTABLISHED PATIENT Routine 02/19/2024 11:00 AM EDT HEPATITIS C AB W/REFL TO HCV RNA, QN, PCR Routine 01/29/2024 10:16 AM EDT Screening examination for sexually transmitted disease HIV 1/2 ANTIGEN/ANTIBODY, FOURTH GENERATION W/RFL Routine 01/29/2024 10:16 AM EDT Screening examination for sexually transmitted disease BI MAMMOGRAM SCREENING TOMOSYNTHESIS BILATERAL Routine 06/13/2023 9:36 AM EST THINPREP IMAGING PAP AND HPV MRNA E6/E7 WITH REFLEX TO HPV 16,18/45 Routine 11/21/2022 12:00 AM EDT HM FIT DNA/COLOGUARD CANCER SCREENING Routine 2022 from Last 3 Months or Most Recently Relevant to Health Maintenance Results * Hepatitis C Antibody with Reflex to HCV, RNA, Quantitative, Real-Time PCR (01/29/2024 10:16 AM EDT) Hepatitis C Antibody Nonreactive Nonreactive [facility] Comment:Antibodies to HCV no t detected; does not exclude early acuteHCV infection. Blood Venous blood specimen / Unknown 01/29/2024 10:16 AM EDT 01/29/2024 11:43 AM EDT us Wilda Smyth MD LAB BLOOD ORDERABLES Final Res ult [facility] [address] [place] [phone] [phone] * HIV-1/2 Antigen and Antibodies, Fourth Generation, with Reflexes (01/29/2024 10:16 AM EDT) HIV AB/AG Nonreactive Nonreactive [facility] Comment:HIV-1 p24 Ag and/or HIV-1/HIV-2 Ab not detected.A test result that is nonreactive does not exclude thepossibility of exposure to or infection with HIV-1 and/orHIV-2. Nonreactive results in this assay for individualswith prior exposure to HIV-1 and/or HIV-2 may be due toantigen and antibody levels that are below the limit ofdetection of this assay.The [employer] HIV Ag/Ab Combo assay result andsupplemental assay results should be interpreted inconjunction with the patient's clinical presentation,history and other laboratory results. If the results areinconsistent with clinical evidence, additional testing issuggested to confirm the result. Blood Venous blood specimen / Unknown 01/29/2024 10:16 AM EDT 01/29/2024 11:43 AM EDT us Wilda Smyth MD LAB BLOOD ORDERABLES Final Res ult Performing Organization Address [facility]/ZIP Co de Phone Number [facility] [address] [place] [phone] * BI Mammogram Screening Tomosynthesis Bilateral (06/13/2023 9:36 AM EST) Anatomical Region Laterality Modality Breast Bilateral Mammography 06/13/2023 9:36 AM EST Narrative 06/30/2023 4:39 AM EST [facility] [address] [place] [address] Mammography Report Signed Patient: Kimberly Ludwig MR# : [id number] : 1970 Acct:[id number] Age/Sex: 52 / F ADM Date: 06/13/23 Loc: HO.MAMMO Attending Dr: Wilda Smyth MD Ordering Physician: Wilda Smyth Results: 1Negative Date of Service: 06/13/23 Follow Up: 1 Year From Orig inal Mammogram Procedure(s): MM tomosynthesis screening BI Accession Number(s): [id number] cc: Wilda Smyth EXAMINATION: MM SCREENING DIGITAL BREAST TOMOSYNTHESIS, BILATERAL CLINICAL INFORMATION: Screening. Asymptomatic. COMPARISON: Mammography: This study is compared with prior exams dating back to 2018. TECHNIQUE: Digital breast tomosynthesis is performed in both the craniocaudal and mediolateral oblique views along with computer-aided detection (CAD). Synthesized 2D images are generated from the tomosynthesis. FINDINGS: The breasts are heterogeneously dense, which may obscure small masses (ACR BI-RADS breast composition Category c). There are no significant masses, abnormal calcifications, or other abnormalities. MM/MM tomosynthesis screening BI IMPRESSION: No mammographic evidence of malignancy. ASSESSMENT: BI-RADS BI-RADS 1 - Negative RECOMMENDATION: Routine annual mammography screening. 1 year F/U This examination should not preclude the clinical evaluation of a suspicious palpable abnormality. This patient's information was entered into a reminder system with a target due date for their next mammogram. Dictated By: Darby Lu MD Signed By: <Electronically signed by Darby Lu MD in OV> 06/30/23 0436 DD/ 0936 TD/TT: Rand Sewer: Procedure Note Donotuseinterpreter, Image - 06/30/2023 [facility] [address] [place], [place] [address] Mammography Report Signed Patient: Kimberly Ludwig CMR# : [id number] : 1970Acct:[id number] Age/Sex: 52 / FADM Date: 06/13/23 Loc: LANCE Attending Dr: Wilda Smyth MD Ordering Physician: Zander Smythults: 1Negative Date of Service: 06/13/23Follow Up: 1 Year From Orig inal Mammogram Procedure(s): MM tomosynthesis screening BI Accession Number(s): [id number] cc: Wilda Smyth EXAMINATION: MM SCREENING DIGITAL BREAST TOMOSYNTHESIS, BILATERAL CLINICAL INFORMATION: Screening. Asymptomatic. COMPARISON: Mammography: This study is compared with prior exams dating back to 2018. TECHNIQUE: Digital breast tomosynthesis is performed in both the craniocaudal and mediolateral oblique views along with computer-aided detection (CAD). Synthesized 2D images are generated from the tomosynthesis. FINDINGS: The breasts are heterogeneously dense, which may obscure small masses (ACR BI-RADS breast composition Category c). There are no significant masses, abnormal calcifications, or other abnormalities. MM/MM tomosynthesis screening BI IMPRESSION: No mammographic evidence of malignancy. ASSESSMENT: BI-RADS BI-RADS 1 - Negative RECOMMENDATION: Routine annual mammography screening. 1 year F/U This examination should not preclude the clinical evaluation of a suspicious palpable abnormality. This patient's information was entered into a reminder system with a target due date for their next mammogram. Dictated By: Darby Lu MD Signed By: <Electronically signed by Darby Lu MD in OV> 06/30/23 0436 DD/ 0936 TD/TT: Rand Sewer: Wilda Smyth MD IMG BI PROCEDURES Edited Resul t - Final * Thinprep TIS PAP And HPV mRNA E6/E7 With Reflex To HPV 16,18/45 (11/21/2022 12:00 AM EDT) Clinical Information: 52 YRS POST MENOPAS I,,NO PRIO [facility] LMP: NONE GIVEN [facility] [employer] Prev. PAP: NONE GIVEN [facility] [employer] Prev. BX: NONE GIVEN [facility] [employer] SOURCE: Cervix [facility] Statement Of Adequacy: [employer] Comment: Satisfactory for evaluation. Endocervical/transformation zone component absent. Interpretation/ Result: Negative for intraepithelial lesion or malignancy. [facility] COMMENT: This Pap test has been evaluated with computer assisted technology. [employer] Cytote[employer]olog[employer] t: Ad[facility] Diagnost Comment: GSG, CT(ASCP) CT screening location: [address] [address] (Always Message) [facility] Comment: EXPLANATORY NOTE: The Pap is a screening test for cervical cancer. It is not a diagnostic test and is subject to false negative and false positive results. It is most reliable when a satisfactory sample, regularly obtained, is submitted with relevant clinical findings and history, and when the Pap result is evaluated along with historic and current clinical information. HPV nRNA E6/E7 Not Detected Not Detected [facility] Comment: Methodology: Dry Transfer Man-Mediated Amplification This assay detects E6/E7 viral messenger RNA (mRNA) from 14 high-risk HPV types (16,18,31,33,35,39,45,51,52,56,58,59,66,68). Cervical sources are required for HPV testing. If a vaginal source from a patient who has had a total hysterectomy with removal of cervix was submitted, please contact the testing laboratory for alternative testing options. For additional information, please refer to http://education.EasyPaint/faq/KNN628d0 (This link if provided for information/ educational purposes only.) 11/21/2022 11/22/2022 12: 12 PM EDT Narrative [facility] - 11/28/2022 9:39 AM EDT FASTING: UNKNOWN [facility] External Provider LAB PATHOLOGY ORDERA BLES Final Result [address], [place] [phone] [employer] [address] [place] [phone] * FIT DNA/Cologuard Cancer Screening (2022) Cologuard Cancer Screen Negative Stool Wilda Smyth MD HEALTH MAINTENANCE Final Resul t from Last 3 Months or Most Recently Relevant to Health Maintenance Insurance [facility]SN [facility] - HSN PARTIAL (MEDICAID) Care Teams Assistant Professor Of Surgery Relationship Specialty Start Date End Date Wilda Smyth MD [address] [place] [address] PCP - General Family Medicine 06/15/20
--- OUTSIDE RECORDS SUMMARY | 2025-05-12 12:04 | XMS_ITS | Encounter Summary ---
Author Organization [facility] Address [address] [place] [address] Care Team Providers Care Mobile Plant Operators Name Role Phone Wilda Smyth Primary Care Provider [phone] Encounter Details Date Type Department Care Team (Late st Contact Info) Description 04/20/2021 Orders Only [facility] Interventional Radiology [address] [place], [place] [phone] Darrian Yung MD [address] [place] [address] Social History Tobacco Use Types Packs/Day Years [...] on filedocumented in this encounter Care Teams Mobile Plant Operators Relationship Specialty Start Date End Date Wilda Smyth [address] [place] [address] PCP - General 03/05/21 documented as of this encounter
--- OUTSIDE RECORDS SUMMARY | 2025-05-12 12:05 | XMS_ITS | Encounter Summary ---
Author Organization [employer] Address [address] [place] [address] [address] [place] [address] Care Team Providers Care Gas Roller Operator Name Role Phone Wilda Smyth MD Primary Care Provider [phone] Reason for Referral * Consultation (Routine) - Canceled Specialty Diagnoses / Procedures Referred By Aaliyah rivera Referred To Contact Speech Pathology Diagnoses Speech dysfunction Maxillary sinus cancer (CMS/HCC) (HCC) History of facial surgery Wilda Smyth MD [address] [place] [address] Phone: tel: fax: [facility] [address] [place] [address] Dr. Kiara Baxter [place] Phone: tel: fax: Referral ID Status Reason Start Date Expiration Date Visits Requested Visits Authorized [id number] Canceled Specialty Services Required 10/24/2023 10/23/2024 1 1 Encounter Details Date Type Department Care Team (Late st Contact Info) Description 10/24/2023 Orders Only [facility] [address] [place], [place] [phone] Wilda Smyth MD [address] [place], [place] [phone] Speech dysfunction (Primary Dx); Maxillary sinus cancer (CMS/HCC); History of facial surgery Social History Tobacco Use Types Packs/Day Years Used Date Smoking Tobacco: Never Passive Smoke Exposure: Never Smokeless Tobacco: Never Alcohol Use Standard Drinks/Week Comments Never 0 (1 standard drink = 0.6 oz pur e alcohol) PHQ-2 Answer Date Recorded Patient Health Questionnaire-2 Score 0 11/21/2022 Housing Stability Answer Date Recorded What is your housing situation today? I have juancho rivera 05/18/[address] you li ve. Do you have problems with any of the following? None of the above 05/18/2023 Food Insecurity Answer Date Recorded Within the past 12 months, y ou worried that your food would run out before you got money to buy more: Never True 05/18/2023 Within the past 12 months,th e food you bought just didn't last and you didn't have enough money to get more: Never True Transportation Answer Date Recorded In the past 12 months, has l ack of transportation kept you from medical appts, meetings, work or from getting things needed for daily living? No 05/18/2023 Utilities Answer Date Recorded In the past 12 months, has t he electric, gas, oil or water company threatened to shut off services in your home? No 05/18/2023 Depression Answer Date Recorded Patient Health Questionnaire-2 Score 0 11/21/2022 Comments Unknown Sex and Gender Information Value Date Recorded Sex Assigned at Female 05/30/2022 10:34 AM EDT Legal Sex Female 10:34 AM EDT Gender Identity Female 05/30/2022 10:34 AM EDT Sexual Orientation Straight 05/30/2022 10 :34 AM EDT documented as of this encounter Plan of Treatment Scheduled Referrals Name Type Priority Associated Diagnoses Orde r Schedule Referral to Speech Therapy Outpatient Referral Routine Speech dysfunction Maxillary sinus cancer (CMS/HCC) History of facial surgery Expected: 10/24/2023 (Approximate), Expires: 10/23/2024 documented as of this encounter Visit Diagnoses Diagnosis Speech dysfunction- Primary Maxillary sinus cancer (CMS/HCC) (HCC) History of facial surgery documented in this encounter Care Teams Gas Roller Operator Relationship Specialty Start Date End Date Wilda Smyth MD [address] [place] [address] PCP - General Family Medicine 06/15/20 documented as of this encounter
--- OUTSIDE RECORDS SUMMARY | 2025-05-12 12:05 | XMS_ITS | Clinical Summary ---
Author Organization [address] [facility] Address [address] [place] [address] Phone Care Team Providers Care Community Service Worker Name Role Phone Physician, No Pcp Primary Care Provider Unavaila ble Social History Tobacco Use Types Packs/Day Years Used Date Smoking Tobacco: Never Assessed Comments Unknown Sex and Gender Information Value Date Recorded Sex Assigned at Not on file Legal Sex Female 3:44 PM EDT Gender Identity Not on file Sexual Orientation Not on file Plan of Treatment Health Maintenance Due Date Last Done Comments Breast Cancer Screening 1971 Colorectal Cancer Screening: Colonoscopy 1971 Hepatitis B Vaccines (1 of 3 - 19+ 3-dose series) 11/09/1990 Pneumococcal Vaccine: 50+ Years (1 of 2 - PCV) 11/09/1990 Zoster Vaccines (1 of 2) 11/09/1990 Cervical Cancer Screening: P ap Smear 11/09/1992 COVID-19 Vaccine (3 - Modern a risk series) 12/24/2020 11/26/2020, 10/28/2020 Social Influencers of Health Screening 05/09/2024 Depression Screening 07/31/2024 Influenza Vaccine (#1) 2025 0, 07/04/2018 DTaP,Tdap,and Td Vaccines (2 - Td or Tdap) 01/28/2034 01/29/2024 RSV Immunization Adult Patients (1 - 1-dose 75+ series) 11/09/2046 HIV [...] on patient's age to complete this topic MMR Vaccines Aged Out No longer eligi ble based on patient's age to complete this topic Meningococcal ACWY Vaccine Aged Out N o longer eligible based on patient's age to complete this topic Meningococcal B Vaccine Aged Out No l onger eligible based on patient's age to complete this topic RSV Immunization Patients Under 20 months Aged Out No longer eligible b ased on patient's age to complete this topic Varicella Vaccines Aged Out No longer eligible based on patient's age to complete this topic Goals Goal Patient Goal Type Associated Problems Recent Progress Patient-Stated? Author ST LTG General On track( 10:56 AM EST) No Dana Sandoval, STATIONARY EQUIPMENT MECHANIC Note: Pt will improve mandibular ROM for swallow function and oral care independently using strategies and HEP ST STG1 General On track( 10:56 AM EST) No Dana Sandoval, STATIONARY EQUIPMENT MECHANIC Note: pt will complete HEP mod I for modifications based on current status ST STG2 General On track( 10:56 AM EST) No Dana Sandoval, STATIONARY EQUIPMENT MECHANIC Note: Pt will participate in ongoing education re trismus and impact on speech and swallow function ST STG3 General On track( 10:56 AM EST) No Dana Sandoval, STATIONARY EQUIPMENT MECHANIC Note: Pt will demonstrate adequate oral prep and oral phase with variety of IDDSI solids Insurance [facility] Care Teams Community Service Worker Relationship Specialty Start Date End Date Physician, No Pcp PCP - General 06/26/24
--- OUTSIDE RECORDS SUMMARY | 2025-05-12 12:05 | XMS_ITS ---
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 History of cancer of maxillary sinus 04/26/2021 Dysphagia 08/09/2019 Open wound of face 01/29/2019 History of ethmoidectomy 01/02/2019 Hypothyroidism 01/02/2019 Assessment & Plan (01/05/2019 1:03 PM EDT): On levothyroxin Assessment & Plan (01/04/2019 12:50 PM EDT): On levothyroxin Assessment & Plan (01/03/2019 2:05 PM EDT): On levothyroxin Chronic ethmoidal sinusitis 12/25/2018 Maxillary sinus cancer 12/17/2018 Hypothyroidism 05/18/2018 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 Past Treatment and Therapy Plans No past plan information found. 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 Related to surgery Status post radical dissection of neck 01/02/2019 01/25/[address] 01/02/20192018 Assessment & Plan (01/05/2019 1:02 PM EDT): Tolerating trach mask Assessment & Plan (01/04/2019 12:50 PM EDT): Tolerating trach mask Assessment & Plan (01/03/2019 2:05 PM EDT): Tolerating trach mask Acute postoperative pain 01/02/2019 Assessment & Plan (01/05/2019 1:02 PM EDT): Tylenol/oxycodone/fentnayl prn/gabapentin Assessment & Plan (01/04/2019 12:50 PM EDT): Tylenol/oxycodone/fentnayl prn Assessment & Plan (01/03/2019 2:05 PM EDT): Tylenol/oxycodone/fentnayl care partner vs prn At risk for hyperglycemia 01/02/2019 Hypovolemia 01/02/2019 01/25/2019 Assessment & Plan (01/05/2019 1:03 PM EDT): Tolerating tube feeds Assessment & Plan (01/04/2019 12:50 PM EDT): On IVF, tube feeds to be started today Assessment & Plan (01/03/2019 2:05 PM EDT): On IVF, tube feeds to be started today On continuous heparin infusion 01/02/2019 01/25/2019 Assessment & Plan (01/05/2019 1:03 PM EDT): For muscle flap Assessment & Plan (01/03/2019 2:06 PM EDT): For muscle flap Leukocytosis 01/02/2019 01/25/2019 Assessment & Plan (01/05/2019 1:03 PM EDT): Has increased, will monitor Assessment & Plan (01/04/2019 12:51 PM EDT): Has increased, will monitor Anemia 01/02/2019 01/25/2019 Assessment & Plan (01/05/2019 1:03 PM EDT): stable Assessment & Plan (01/04/2019 12:50 PM EDT): stable Assessment & Plan (01/03/2019 2:06 PM EDT): Slight drop of H/H, will monitor Mobility impaired 01/25/2019
--- OUTSIDE RECORDS SUMMARY | 2025-05-12 12:05 | XMS_ITS | Encounter Summary ---
Author Organization [employer] Address [address] [facility] 7t [place] [address] Care Team Providers Care Commercial Title Examiner Name Role Phone Wilda Smyth MD Primary Care Provider [phone] Encounter Details Date Type Department Care Team ([facility] st Contact Info) Description 10/03/2023 Orders Only [facility] MED[facility]INE [address] [place], [place] [phone] Wilda Smyth MD [address] [place], [place] [phone] Social History Tobacco Use Types Packs/Day Years Used Date Smoking Tobacco: Never Passive Smoke Exposure: Never Smokeless Tobacco: Never Alcohol Use Standard Drinks/Week Comments Never 0 (1 standard drink = 0.6 oz pur e alcohol) PHQ-2 Answer Date Recorded Patient Health Questionnaire-2 Score 0 11/21/2022 Housing Stability Answer Date Recorded What is your housing situation today? I have juanchoarlen rivera 05/18/[address] you [...] on filedocumented in this encounter Care Teams Commercial Title Examiner Relationship Specialty Start Date End Date Wilda Smyth MD [address] [place] [address] PCP - General Family Medicine 06/15/20 documented as of this encounter
--- OUTSIDE RECORDS SUMMARY | 2025-05-12 12:05 | XMS_ITS | Encounter Summary ---
Author Organization [employer] Address [address] [facility] 7[address] [place] [address] Care Team Providers Care Commercial Illustrator Name Role Phone Wilda Smyth MD Primary Care Provider [phone] Encounter Details Date Type Department Care Team ([facility] st Contact Info) Description 02/09/2024 Orders Only [facility] MEDICINE [address] [place], [place] [phone] Wilda Smyth MD [address] [place], [place] [phone] Social History Tobacco Use Types Packs/Day Years [...] documented as of this encounter Care Teams Commercial Illustrator Relationship Specialty Start Date End Date Wilda Smyth MD [address] [place] [id number] PCP - General Family Medicine 06/15/20 documented as of this encounter
--- OUTSIDE RECORDS SUMMARY | 2025-05-12 12:05 | XMS_ITS | Encounter Summary ---
Author Organization [employer] Address [address] [facility] [address] [place] [address] Care Team Providers Care Manager Mutual Fund Name Role Phone Wilda Smyth MD Primary Care Provider [phone] Encounter Details Date Type Department Care Team (Late st Contact Info) Description 12/08/2022 Abstract [facility] MEDICINE [address] [place], [place] [phone] Leanna Lozoya RN [address] [place], [place] [phone] Social History Tobacco Use Types Packs/Day Years Used Date Smoking Tobacco: Never Passive Smoke Exposure: Never Smokeless Tobacco: Never Alcohol Use Standard Drinks/Week Comments Never 0 (1 standard drink = 0.6 oz pur e alcohol) PHQ-2 Answer Date Recorded Patient Health Questionnaire-2 Score 0 11/21/2022 Depression Answer Date Recorded Patient Health Questionnaire-2 Score 0 11/21/2022 Comments Unknown Sex and Gender Information Value Date Recorded Sex Assigned at Female 05/30/2022 10:34 AM EDT Legal Sex Female 10:34 AM EDT Gender Identity Female 05/30/2022 10:34 AM EDT Sexual Orientation Straight 05/30/2022 10 :34 AM EDT COVID-19 Exposure Response Date Recorded In the last 10 days, have yo u been in contact with someone who was confirmed or suspected to have Coronavirus/COVID-19? No / Unsure 11/21/2022 8:40 AM EDT documented as of this encounter Plan of Treatment Not on file documented as of this encounter Procedures Procedure Name Priority Date/Time Associated Diagnosis Comments HM PAP/HPV Routine 11/21/2022 documented in this encounter Results * Hm Pap Smear (11/21/2022) Pap smear NIL HPV- us Historical Provider HEALTH MAINTENANCE Final Result documented in this encounter Visit Diagnoses Not on filedocumented in this encounter Care Teams Manager Mutual Fund Relationship Specialty Start Date End Date Wilda Smyth MD [address] [place] [id number] PCP - General Family Medicine 06/15/20 documented as of this encounter
--- OUTSIDE RECORDS SUMMARY | 2025-05-12 12:05 | XMS_ITS | Encounter Summary ---
Author Organization [employer] Address [address] [place] [address] 7[address] [place] [address] Care Team Providers Care Association Executive Name Role Phone Wilda Smyth MD Primary Care Provider [phone] Encounter Details Date Type Department Care Team ([facility] st Contact Info) Description 10/19/2022 Orders Only [facility] MED[facility] [address] [place], [place] [phone] Wilda Smyth MD [address] [place], [place] [phone] Social History Tobacco Use Types Packs/Day Years Used Date Smoking Tobacco: Never Passive Smoke Exposure: Never Smokeless Tobacco: Never PHQ-2 Answer Date Recorded Patient Health Questionnaire-2 Score 0 10/17/2022 Comments Unknown Sex and Gender Information Value [...] suspected to have Coronavirus/COVID-19? No / Unsure 10/17/2022 8:56 AM EDT documented as of this encounter Plan of Treatment Not on file documented as of this encounter Visit Diagnoses Not on filedocumented in this encounter Care Teams Association Executive Relationship Specialty Start Date End Date Wilda Smyth MD [address] [place], [place] [phone] PCP - General Family Medicine 06/15/20 documented as of this encounter
--- OUTSIDE RECORDS SUMMARY | 2025-05-12 12:05 | XMS_ITS | Clinical Summary ---
Author Organization [facility] Address [address] [place] [address] Care Team Providers Care Certified Surgical Assistant Name Role Phone Wilda Smyth Primary Care Provider [phone] Allergies Active Allergy Reactions Criticality Noted Date Comments Lemon Angioedema High 03/03/2021 Tongue thickens Pineapple Angioedema High 03/03/2021 Medications levothyroxine (SYNTHROID, LEVOTHROID) 125 mcg tablet Take 125 mcg by mouth daily. Active acetaminophen (TYLENOL) 325 mg tablet Take 2 tablets (650 mg total) by mouth every 6 hours. 1 Active docusate sodium (COLACE) 100 mg capsule Take 1 capsule (100 mg total) by mouth 2 times a day. 1 Active ibuprofen (MOTRIN) 600 mg tablet Take 1 tablet (600 mg total) by mouth every 8 hours as needed for pain. 1 Active oxyCODONE IR (ROXICODONE) 5 mg tablet Take 1 tablet (5 mg total) by mouth every 4 hours as needed for pain. Max Daily Amount: 30 mg 12 tablet 1 Active polyvinyl alcohol (ARTIFICIAL TEARS) 1.4% ophthalmic solution Instill 1 drop into both eyes every 4 hours. 1 Active senna (SENOKOT) 8.6 mg tablet Take 1 tablet (8.6 mg total) by mouth daily as needed for constipation. 0 1 Active Additional Information Patient not taking.Reported on 03/27/2024 Active Problems Problem Noted Date Diagnosed Date [...] hysterectomy 05/18/2018 Maxillary polyp of sinus 05/18/2018 Resolved Problems Problem Noted Date Diagnosed Date [...] & Plan (01/03/2019 2:05 PM EDT): Tylenol/oxycodone/fentnayl personal companion vs prn At risk for hyperglycemia 01/02/2019 [...] of H/H, will monitor Mobility impaired 01/25/2019 Encounters Date Type Department Care Team Description 03/28/2025 8:37 AM EDT - 03/28/2025 11:59 PM EDT Hospital Encounter [facility] [address] [place] [phone] Director Of Contracts: Lokesh Rogers Jr., MD Dental caries (Primary Dx); Acquired facial deformity Discharge Disposition: Home or Self Care (01) from Last 3 Months Immunizations Immunization Administration Dates Next Due Influenza, Injectable, Quadrivalent, Preservativ e Free 07/29/2020 Family History Medical History Relation Name Comments No Known Problems Father Liver disease Mother Thyroid disease Sister 1 Thyroid disease Sister 2 Thyroid cancer Neg Hx Relation Name Status Comments Father Alive Mother Sister 1 Alive Sister 2 Alive Social History Tobacco Use Types Packs/Day Years Used Date Smoking Tobacco: Never Smokeless Tobacco: Never Tobacco Cessation:Counseling Given: Not Answered Alcohol Use Standard Drinks/Week Comments No 0 [...] file Not on file Not on file Last Filed Vital Signs Vital Sign Reading Time Taken Comments Blood Pressure 144/87 03/28/2025 9:09 AM EDT Pulse 74 03/28/2025 9:09 AM EDT Temperature 36.5 C (97.7 F) 05/06/2021 7:44 AM EDT Respiratory Rate 18 03/28/2025 9:09 AM EDT Oxygen Saturation 94% 03/28/2025 9:09 AM EDT Inhaled Oxygen Concentration - - Weight 55.9 kg (123 lb 3.2 oz) 03/28/2025 9:09 A M EDT Height 157.5 cm (5' 2.01 ) 03/28/2025 9:09 AM ED T Body Mass Index 22.53 03/28/2025 9:09 AM EDT Plan of Treatment Health Maintenance Due Date Last Done Comments Cologuard 1971 Colon Cancer Screening 1971 Colonoscopy 1971 FOBT / Fit Test 1971 Sigmoidoscopy 1971 Hepatitis B Vaccines (1 of 3 - 19+ 3-dose series) 11/09/1990 Pneumococcal Vaccine: 50+ Ye ars (1 of 2 - PCV) 11/09/1990 Zoster Vaccines (1 of 2) 11/09/1990 COVID-19 Vaccine (3 - Moderna risk series) 12/24/2020 11/26/2020, 10/28/2020 Mammogram 04/19/2021 04/19/2019, 04/06/2018 Depression Screening and Follow-Up 07/31/2024 Social Drivers of Health Annual Screening 07/31/2024 Influenza Vaccine (#1) 2025 07/29/2020, 2017 DTaP,Tdap,and Td Vaccines (2 - Td or Tdap) 01/28/2034 01/29/2024 RSV Vaccine (60+ years old a nd patients) (1 - 1-dose 75+ series) 11/09/2046 HIV Screening Completed 01/29/2024, 01/29/2024 Hepatitis C Screening Completed 01/29/2024 Alcohol/Substance Use Screening Completed Medical Devices Implanted Type Area Computer Art Instructor Device Identifier Shelf Expiration Date Model / Serial / Lot Peg 20mm - [id number] Implanted:Qty: 1 on 01/16/2019 by Triston Patterson MD at [facility] Implant N/A: Esophagus Desmond 12/02/2020 P20 / / [id number] Plate Y Standard Midface Bar 5 Hole 4mm - [id number] Implanted:Qty: 1 on 01/01/2019 by Alvino Cevallos MD at [facility] Plate Left: Maxilla ELOY [id number] / / Plate Midface Standard Straight With Bar Titanium 8 Hole 1.7mm - [id number] Implanted:Qty: 1 on 01/01/2019 by Alvino Cevallos MD at [facility] Plate Left: Maxilla ELOY [id number] / / Plate T Midface Standard Titanium 5 Hole 0.6mm - [id number] Implanted:Qty: 1 on 04/26/2021 by Lokesh Monroy Jr., MD at [facility] Plate Left: Maxilla ELOY [id number] / / Plate Midface Malleable Curved With Bar Titanium 4 Hole 0.6mm - [id number] Implanted:Qty: 1 on 04/26/2021 by Lokesh Monroy Jr., MD at [facility] Plate Left: Maxilla ELOY [id number] / / Screw Selftap Midface 1.7x5mm - [id number] Implanted:Qty: 1 on 01/01/2019 by Alvino Cevallos MD at [facility] Screw Left: Maxilla ELOY [id number] / / Screw Mid-Face Self-Drilling Titanium Gold 1.2kke6po - [id number] Implanted:Qty: 7 on 01/01/2019 by Alvino Cevallos MD at [facility] Explanted:Qty: 1 on 01/14/2019 by Alvino Cevallos MD at [facility] Screw Left: Maxilla ELOY [id number] / / Screw Mid-Face Self-Drilling Titanium Gold 1.9zvr2gk - [id number] Implanted:Qty: 3 on 04/26/2021 by Lokesh Monroy Jr., MD at [facility] Screw Left: Maxilla ELOY [id number] / / Screw Mid-Face Self-Drilling Titanium Gold 1.5jfx2jv - [id number] Implanted:Qty: 2 on 04/26/2021 by Lokesh Monroy Jr., MD at [facility] Screw Left: Maxilla ELOY [id number] / / Screw Mid-Face Self Tapping Titanium Gold 1.9xyr1ms - [id number] Implanted:Qty: 1 on 04/26/2021 by Lokesh Monroy Jr., MD at [facility] Screw Left: Maxilla ELOY [id number] / / Screw Selftap Midface 1.7x5mm - [id number] Implanted:Qty: 9 on 04/26/2021 by Lokesh Monroy Jr., MD at [facility] Screw Left: Maxilla ELOY 50-71686 / / Screw Locking 2.7ezs92zi - [id number] Implanted:Qty: 3 on 04/26/2021 by Lokesh Monroy Jr., MD at [facility] Screw Left: [facility] [id number] / / Screw Locking 2.0egb78lu - [id number] Implanted:Qty: 2 on 04/26/2021 by Lokesh Monroy Jr., MD at [facility] Screw Left: [employer] [facility] [id number] / / Screw Locking 2.3dnh67se - [id number] Implanted:Qty: 1 on 04/26/2021 by Lokesh Monroy Jr., MD at [facility] Screw Left: [employer] [facility] [id number] / / Screw Non-Locking 2.5zql35qu - [id number] Implanted:Qty: 1 on 04/26/2021 by Lokesh Monroy Jr., MD at [facility] Screw Left: [employer]ius [facility] [id number] / / Screw Locking 2.3dnb79bj - [id number] Implanted:Qty: 2 on 04/26/2021 by Lokesh Monroy Jr., MD at [facility] Screw Left: [employer]ius [facility] [id number] / / Screw Locking 2.5kfq59ig - [id number] Implanted:Qty: 1 on 04/26/2021 by Lokesh Monroy Jr., MD at [facility] Screw Left: [facility] [id number] / / Allograft Freeze Dried Medium 9igh6hx Alloderm - [id number] Implanted:Qty: 1 on 01/01/2019 by Alvino Cevallos MD at [facility] Tissue Orbit [employer]ek 08/30/2020 [id number] / / [id number] Volar Peek Plate 9 Hole Implanted:Qty: 1 on 04/26/2021 by Lokesh Monroy Jr., MD at [facility] Left: [facility] [id number] / / Explanted Type Area Computer Art Instructor Device Identifier Shelf Expiration Date Model / Serial / Lot Screw Mid-Face Self-Drilling Titanium Gold 1.2yby8bs - [id number] Implanted:Qty: 1 on 01/01/2019 by Alvino Cevallos MD at [facility] Explanted:Qty: 1 on 01/14/2019 by Alvino Cevallos MD at [facility] Screw Left: Maxilla ELOY [id number] / / Plate Midface Standard Straight With Bar Titanium 24 Hole 1.7mm - [id number] Implanted:Qty: 1 on 01/01/2019 by Alvino Cevallos MD at [facility] Explanted:Qty: 1 on 01/14/2019 by Alvino Cevallos MD at [facility] Screw Left: Maxilla ELOY [id number] / / Screw Mid-Face Self-Drilling Titanium Gold 1.2xwz0xy - [id number] Implanted:Qty: 1 on 01/01/2019 by Alvino Cevallos MD at [facility] Explanted:Qty: 1 on 01/14/2019 at [facility] Screw Left: Maxilla ELOY [id number] / / Insurance [facility] [address] [place] [address] [facility] Advance Directives Documents on File Type Date Recorded Patient Copy Writer Expl anation Health Care Proxy 01/03/2019 3:49 PM 2018 * Full Code (Latest Code Status on File) Date Activated Date Inactivated Comments 04/26/2021 7:04 PM 05/06/2021 3:37 PM * Presumed Full Code Date Activated Date Inactivated Comments 04/26/2021 6:08 AM 04/26/2021 7:04 PM * Full Code Date Activated Date Inactivated Comments 01/16/2019 6:03 PM 01/25/2019 4:33 PM * Full Code Date Activated Date Inactivated Comments 01/02/2019 5:04 PM 01/16/2019 6:03 PM * Full Code Date Activated Date Inactivated Comments 01/01/2019 2:28 PM 01/02/2019 5:04 PM Healthcare Agents on File Name Relationship Healthcare Agent Relationstn p Communication Jen Stringer Sister Health Care Agent Care Teams Certified Surgical Assistant Relationship Specialty Start Date End Date Wilda Smyth [address] [place] [address] PCP - General 03/05/21
--- OUTSIDE RECORDS SUMMARY | 2025-05-12 12:05 | XMS_ITS | Clinical Summary ---
Author Organization [facility] Address [address] [address] Phone Care Team Providers Care Telephoto Engineer Name Role Phone Wilda Smyth MD Primary Care Provider + Social History Tobacco Use Types Packs/Day Years Used Date Smoking Tobacco: Never Assessed Education Answer Date Recorded Are you interested in more education? Not on henry e 11/25/2022 Are you concerned about learning? Not on file 11/25/2022 No 11/25/2022 No 11/25/2022 Digital Access Answer Date Recorded No 12/27/2022 No 12/27/2022 Reliable internet access at home? Not on file 12/27/2022 Device with a working camera? Not on file Comments Unknown Sex and Gender Information Value Date Recorded Sex Assigned at Not on file Legal Sex Female 11:56 AM EST Gender Identity Not on file Sexual Orientation Not on file Plan of Treatment Health Maintenance Due Date Last Done Comments Adult Td,Tdap Booster 1971 LIPID PANEL 1971 DEPRESSION SCREENING 1983 SMOKING Hx and SMOKELESS TOB ACCO SCREENING 11/09/1984 HEPATITIS C SCREENING 11/09/1989 HIV ONE-TIME SCREENING (18-6 5 YEARS) 11/09/1989 PAP SMEAR 11/09/1992 MAMMOGRAM 2011 COLOGUARD 11/09/2016 COLONOSCOPY 11/09/2016 COLORECTAL CANCER SCREENING 11/09/2016 FIT TEST 11/09/2016 FOBT 11/09/2016 SIGMOIDOSCOPY 11/09/2016 VIRTUAL COLONOSCOPY 11/09/2016 PNEUMOCOCCAL VACCINES (50+ y ears) (1 of 1 - PCV) 11/09/2021 ZOSTER VACCINES (1 of 2) 11/09/2021 INFLUENZA VACCINE (#1) 2025 COVID-19 VACCINE ( - 2024-2 6 season) 2025 RSV VACCINE (1 - 1-dose 75+ series) 11/09/2046 HEPATITIS A VACCINES Aged Out No long er eligible based on patient's age to complete this topic HIB VACCINES Aged Out No longer eligi ble based on patient's age to complete this topic MENINGOCOCCAL VACCINES (ACWY) Aged Out No longer eligible based on patient's age to complete this topic MENINGOCOCCAL VACCINES (B) Aged Out N o longer eligible based on patient's age to complete this topic Medical Devices Not on file Insurance [employer] Member Subscriber Plan / Payer (Ef fective 2020-Present) Name:Kimberly Boone Relation to Subscriber:Self Name:Kimberly Boone Payer ID:[id number] Group ID:Not on file Type:Medicaid Address: [address] FULL [employer] SAF[employer] NET FULL [employer] [place] [employer] [place] FULL [employer] FULL [place] [employer] FULL [employer] Member Subscriber Plan / Payer (Ef fective 2020-Present) Name:Kimberly Boone Relation to Subscriber:Self Name:Kimberly Boone Payer ID:[id number] Group ID:Not on file Type:Medicaid Address: [address] [facility] [employer] [facility] Member Subscriber Plan / Payer (Ef fective 2020-Present) Name:Kimberly Boone Relation to Subscriber:Self Name:Kimberly Boone Payer ID:[id number] Group ID:Not on file Type:Medicaid Address: [address] SAFETY NET FULL [facility] SAFETY NET FULL Care Teams Telephoto Engineer Relationship Specialty Start Date End Date Wilda Smyth MD PCP - General 08/13/20 Additional Source Comments The information contained in this document represents components of the legal health record. It is not the complete legal health record.[facility]
--- OUTSIDE RECORDS SUMMARY | 2025-05-12 12:05 | XMS_ITS | Encounter Summary ---
Author Organization [employer] Address [address] [facility] [address] [place] [address] Care Team Providers Care Construction Safety Manager Name Role Phone Wilda Smyth MD Primary Care Provider [phone] Reason for Visit * Reason Onset Date Comments Returning Call 01/18/2024 Encounter Details Date Type Department Care Team (Late st Contact Info) Description 01/18/2024 Telephone [facility] [address] [place], [place] [phone] Wilda Smyth MD [address] [place], [place] [phone] Returning Call Social History Tobacco Use Types Packs/Day Years Used Date Smoking Tobacco: Never Passive Smoke Exposure: Never Smokeless Tobacco: Never Alcohol Use Standard Drinks/Week Comments Never 0 (1 standard drink = 0.6 oz pur e alcohol) PHQ-2 Answer Date Recorded Patient Health Questionnaire-2 Score 0 11/21/2022 Housing Stability Answer Date Recorded What is your housing situation today? I have [place] 01/18/[address] you [...] AM EDT documented as of this encounter Miscellaneous Notes * Telephone Encounter - Kofi Paolo - 01/18/2024 9:31 AM EDT Tc from pt returning call regarding message below regarding PVP. NEETA Kapoor placed outbound call to patient to complete pre-visit planning. No answer at this time. Patient name and were not confirmed. CC left voicemail requesting return call. Direct contact information provided. documented in this encounter Plan of Treatment Not on file documented as of this encounter Visit Diagnoses Not on filedocumented in this encounter Care Teams Construction Safety Manager Relationship Specialty Start Date End Date Wilda Smyth MD [address] [place] [id number] PCP - General Family Medicine 06/15/20 documented as of this encounter
--- OUTSIDE RECORDS SUMMARY | 2025-05-12 12:05 | XMS_ITS | Encounter Summary ---
Author Organization [employer] Address [address] [facility] [address] [place] [address] Care Team Providers Care Framing Carpenter Name Role Phone Wilda Smyth MD Primary Care Provider [phone] Encounter Details Date Type Department Care Team ([facility] st Contact Info) Description 11/28/2022 Orders Only [facility] [address] [place], [place] [phone] Wilda Smyth MD [address] [place], [place] [phone] Bacterial vaginosis (Primary Dx) Social History Tobacco Use Types [...] as of this encounter Visit Diagnoses Diagnosis Bacterial vaginosis- Primary Unspecified vaginitis and vulvovaginitis documented in this encounter Care Teams Framing Carpenter Relationship Specialty Start Date End Date Wilda Smyth MD [address] [place] [address] PCP - General Family Medicine 06/15/20 documented as of this encounter
== END 2025-05-12 12:01 | disposition home or self-care (01) ==
LOC: HO.HHCL 12:00
PROVIDERS: PCP General Practice; Visit Provider General Practice
DX: E89.0 Postprocedural hypothyroidism (principal)
CPT/HCPCS: 36415; 84443